=== PATIENT | female | born 2000 | race Caucasian/White ===

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

== ENCOUNTER 2022-06-20 18:33 | Outpatient (CLI) | payer MEDICAID ==
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
== END 2022-06-20 18:34 | disposition home or self-care (01) ==
LOC: DI 18:33
PROVIDERS: ATTEND Physician Assistant Medical
DX: R04.2 Hemoptysis (principal)
CPT/HCPCS: 81599

== ENCOUNTER 2022-10-31 08:00 | Outpatient (CLI) | payer MEDICAID | END 2022-10-31 23:59 | disposition home or self-care (01) | LOC: LAB 08:00 | PROVIDERS: ATTEND Family Medicine | DX: L03.116 Cellulitis of left lower limb (principal) | CPT/HCPCS: 87070; 87205 ==